=== PATIENT | female | born 1950 | race Caucasian/White ===

== ENCOUNTER 2019-05-16 11:48 | Outpatient (CLI) | payer MEDICARE, OTHER, SELFPAY ==
--- NOTE | 2019-05-16 12:02 | XR_ITS ---
WS: [id number] LEFT HIP HISTORY: TROCHANTERIC BURSITIS, UNSPECIFIED HIP COMPARISON: CT pelvis 08/12/2015 LEFT hip: No acute fracture or dislocation. Mild narrowing of the LEFT hip joint. No bone destruction . Several small calcifications with a maximum diameter 14 mm in the soft tissues lateral to the proxima l femur. These calcifications were present on the prior study and probably associated with the tendon s of the gluteal muscles. XR/XR hip LT 2-3V wo/w pel* [id number] IMPRESSION: 1. Mild LEFT hip joint arthritis. 2. Stable calcifications in the soft tissues lateral to the proximal femur. Th marcelina calcifications were present in 2016 and probably related to calcific tendin itis.
== END 2019-05-16 11:49 | disposition home or self-care (01) ==
LOC: RADWPI 11:56
PROVIDERS: Family Provider Family Medicine; PCP Family Medicine; Visit Provider Family Medicine
DX: M70.62 Trochanteric bursitis, left hip (principal); L94.2 Calcinosis cutis
CPT/HCPCS: 73502

== ENCOUNTER → 2019-12-20 14:45 | Outpatient (BNVA) | payer MEDICARE, OTHER, SELFPAY | PROVIDERS: Family Provider Family Medicine; PCP Family Medicine; Visit Provider Podiatrist Foot & Ankle Surgery | DX: M79.672 Pain in left foot (principal); M19.072 Primary osteoarthritis, left ankle and foot | CPT/HCPCS: 73630 ==

== ENCOUNTER → 2019-12-26 18:05 | Outpatient (BNVA) | payer MEDICARE, OTHER, SELFPAY | PROVIDERS: Family Provider Family Medicine; PCP Family Medicine; Visit Provider Nurse Practitioner Family | DX: Z20.828 Contact with and (suspected) exposure to other viral communicable diseases (principal) | CPT/HCPCS: 87635 ==

== ENCOUNTER → 2020-04-08 12:45 | Outpatient (BNVA) | payer MEDICARE, OTHER, SELFPAY | PROVIDERS: Family Provider Family Medicine; PCP Family Medicine; Visit Provider Podiatrist Foot & Ankle Surgery | DX: Z20.828 Contact with and (suspected) exposure to other viral communicable diseases (principal); Z01.812 Encounter for preprocedural laboratory examination | CPT/HCPCS: 87635 ==

== ENCOUNTER 2020-04-12 06:48 | Day surgery (SDC) | payer MEDICARE, OTHER, SELFPAY ==
[2020-04-11 13:53] VITALS: BMI 29.3
--- NOTE | 2020-04-12 | SCC_ITS ---
Procedure Done: Hammertoe Correction left 2nd toe [id number] 28 seconds of fluoroscopic guidance, for a cumulative dose of 0.302 mGy, was provided to Dr. Parrish by the radiology department. C-arm images of the LEFT foot were saved for the patient's permanent record. [facility]
--- NOTE | 2020-04-12 05:58 | P.HP_ITS ---
Providers/Chief Complaint Chief Complaint: degenerative arthirtis of toe joint History of Present Illness Kiana Brenner is a 69 year old female presenting for surgical consultation of her left second toe. She has had progressive pain that is arthritic in nature and affects her everyday activities standing and walking. Describes the nature of the pain is achy which increases to sharp stabbing with increased activity. She is failed conservative measures consisting of spacers padding, anti-inflammatories and supportive shoes. Would like to discuss surgical correction at this time. Review of Systems General: Reports: 10 or more systems reviewed and unremarkable except in HPI and below Const: Denies: fever(s) or chills Eyes: Denies: change in vision Card: Denies: chest pain or palpitations Resp: Denies: dyspnea or productive cough GI: Denies: abdominal pain, nausea or vomiting : Denies: flank pain Musc: Reports: extremity pain Skin/Breast: Denies: rash Neuro: Denies: numbness in extremities, sensory changes or frequent falls Psych: Denies: suicidal ideation Kartik/Lymph: Denies: easy bruising Medications/Allergies Home Medications Medication Instructions Recorded Confirmed Last Taken Type alprazolam 0.5 mg tablet 0.5 mg PO DAILY 10/26/19 04/12/20 04/11/20 History loratadine 10 mg tablet 10 mg PO DAILY 10/26/19 04/11/20 Unknown History metronidazole 0.75 % topical cream 1 applic TOPICAL DAILY 10/26/19 04/11/20 Unknown History omeprazole 20 mg tablet,delayed 20 mg PO DAILY 10/26/19 04/11/20 Unknown History release tramadol 50 mg tablet 50 mg PO BID PRN 10/26/19 04/11/20 Unknown History trazodone 100 mg tablet 100 mg PO DAILY 10/26/19 04/11/20 Unknown History methotrexate sodium 2.5 mg tablet 6 mg PO .weekly tab 12/26/19 04/11/20 03/29/20 History ustekinumab 45 mg/0.5 mL SUBCUT .s1cgwhwa ml 12/26/19 02/27/20 Unknown History subcutaneous solution amlodipine 5 mg PO DAILY 04/11/20 04/12/20 04/12/20 History Allergies Allergy/AdvReac Type Severity Reaction Status Date / Time cefuroxime [From Ceftin] Allergy Unknown Unknown Verified 02/27/20 14:10 PFSH PFSH: Medical History (Updated 04/12/20 @ 05:59 by Corona Parrish DPM) H/O psoriatic arthritis Hypertension Meniere disease Osteoarthritis Raynaud disease Surgical History History of hysterectomy History of right knee joint replacement Family History Other Cancer Diabetes Social History Smoking and tobacco status: never smoked Household members: spouse Marital status: Current occupational status: retired Vital Signs Weight: Weight last 48 hrs Weight 182 lb Physical Exam Narrative: EXAM NARRATIVE: Patient is alert and oriented ?3 and in no acute distress. The following is a focused bilateral lower extremity exam. VASCULAR: Dorsalis pedis and posterior tibial arteries palpable +2 bilaterally. Capillary refill time less than 5 seconds to the distal hallux bilaterally. Calf is supple and nontender proximally and distally. Varicosities to the lower extremities. NEUROLOGICAL: Protective sensation intact 10/10 sites, tested with [place] monofilament to bilateral feet. DERMATOLOGICAL: Lower extremity skin is well-hydrated, normal texture and turgor. There are no open sores or lesions noted to the lower extremities. No erythema or ecchymosis present to the bilateral legs and feet. MUSCULOSKELETAL: Hammertoe deformity to the right second toe with pain to palpation at the right second distal interphalangeal joint and with range of motion this is limited at this joint compared to the contralateral limb with dorsiflexion and plantarflexion. Ankle joint dorsiflexion is 5 degrees beyond neutral at the left, 10 degrees at the right. First metatarsal phalangeal joint dorsiflexion 30 degrees at the right, 15 degrees of the left. Muscle strength is 5 out of 5 in all 3 cardinal planes to the bilateral and ankle. Resp: COMMON NORMALS: normal respiratory effort, No retractions, No use of accessory muscles and clear to auscultation bilaterally EFFORT & INSPECTION: Yes able to speak in complete sentences and Yes symmetric chest movement AUSCULTATION: clear to auscultation bilaterally Cardio: COMMON NORMALS: regular rate, regular rhythm, S1 normal heart sound present, S2 normal heart sound present and Peripheral pulses 2+ throughout RATE: regular rate RHYTHM: regular rhythm HEART SOUNDS: S1 normal heart sound present and S2 normal heart sound present PERIPHERAL PULSES: Peripheral pulses 2+ throughout A&P Assessment and plan (1) Degenerative arthritis of toe joint: Status: Acute Qualifiers: Laterality: left Qualified Code(s): M19.072 - Primary osteoarthritis, left ankle and foot (2) Hammertoe of left foot: Status: Acute (3) Left foot pain: Status: Acute Additional A&P Information Patient's chief complaint is her left second toe pain. Reviewed x-ray shows degenerative changes with joint space narrowing, sclerosing and irregularity joint surface consistent with old fracture versus significant degenerative joint disease at this toe. Recommended Silipos sleeve and hammertoe cushion and supportive shoes and stretching exercises of the leg muscle group posteriorly. Bhdw-imq-[id number] NSAIDs and activity modifications. Patient has been performing these conservative measures without relief and would like to discuss surgical intervention. Recommending left second toe hammertoe correction with arthroplasty/arthrodesis at distal interphalangeal joint will be scheduled for April 12, 2019. Will hold methotrexate 1 week prior to surgery and restart 1 month following surgery. Discussed risks include pain, bleeding, numbness, infection, persistent swelling, hypersensitivity, surgical site dehiscence, hardware failure, delayed union, nonunion and malunion, pseudoarthrosis and need for further surgical intervention. Patient is agreeable wishes to proceed. Follow-up week 1 nursing visit dressing change, 2,4 and 6 in podiatry clinic postoperatively. Left second hammertoe correction with arthrodesis of distal interphalangeal joint with implant scheduled 04/12/2020 will be outpatient, MAC anesthesia duration of procedure 30 minutes. Coding Level of Care Code Acute Wire Machine Operator for Chg Fwd Exam Expanded Problem Focused Diagnoses Degenerative arthritis of toe joint M19.072 Laterality: left Hammertoe of left foot M20.42 Left foot pain M79.672
[2020-04-12 07:02] VITALS: BP 136/91; PULSE 95; RESP 18; O2SAT 96
[2020-04-12] MEDS: sodium chloride 0.9% 1,000 ML 30 ML IV (07:29)
--- NOTE | 2020-04-12 07:55 | ANES.PREANE2 ---
Pre-Anesthetic Assessment Pre-Anesthetic Assessment: Height/Weight: Height 1.68 m Weight 82.554 kg Pulse Resp BP Pulse Ox 95 18 136/91 96 04/12/20 07:02 04/12/20 07:02 04/12/20 07:02 04/12/20 07:02 Preop Diagnosis: Left second hammertoe Proposed Procedure: Operation Date: 04/12/20 08:30 Proposed Procedures p Hammertoe Correction left 2nd toe 86414 M19.072(Left) - Corona Parrish DPM Familial anesthetic complications: ponv Was Beta Marita taken within 24 hours: N/A Last intake: Intake Last Liquid Date 04/12/20 Last Liquid Time 06:00 Last Solid Date 04/11/20 Last Solid Time 22:00 Social: Social History: No alcohol and No tobacco Exam: Pre-Anes Outpt Exam: alert, oriented x 3, clear to auscultation bilaterally and regular rate & rhythm Airway: Cervical ROM: WNL MP: 2 Dentition: Full CV/HEM: CV/HEM: HTN GI: GI: GERD Musc/skel: Musc/skel: OA/DJD (psoriatic) Anesthetic Plan: ASA status: 2 Anesthesia: MAC Risk of > 500 ml blood loss (7ml/kg in children): No Meds/Allergies Current Medications: Current Medications Generic Name Dose Route Start Last Admin Trade Name Freq PRN Reason Stop Dose Admin Sodium Chloride 1,000 mls @ 30 ml s/hr 04/12/20 07:00 04/12/20 07:29 Sodium Chloride 0.9% IV 04/13/20 06:59 30 mls/hr .Q24H KENDALL Administration PFSH Anesthesia PFSH: Medical History (Updated 04/12/20 @ 05:59 by Corona Parrish DPM) H/O psoriatic arthritis Hypertension Meniere disease Osteoarthritis Raynaud disease Surgical History History of hysterectomy History of right knee joint replacement Family History Other Cancer Diabetes Social History Smoking and tobacco status: never smoked Household members: spouse Marital status: Current occupational status: retired Data Anesthesia Cardiac Studies: No Data to Display
--- NOTE | 2020-04-12 08:28 | W.PM.OPSUD ---
Surgery/Procedure H&P Update DATE OF PROCEDURE: April 12, 2020 DATE H&P PERFORMED: 04/12/20 H&P UPDATE INFORMATION: I have reviewed H&P completed within last 30 days, I have examined patient prior to procedure, No changes to prior documentation and H&P is in [facility] EMR on date indicated PREOP DIAGNOSIS: Left second hammertoe PLANNED PROCEDURE: Operation Date: 04/12/20 08:30 Proposed Procedures p Hammertoe Correction left 2nd toe 76476 M19.072(Left) - Corona Parrish DPM
--- NOTE | 2020-04-12 08:28 | PM.OP ---
Operative Report Date of procedure: April 12, 2020 Pre-op Diagnosis: Left second hammertoe Post-op diagnosis: same Post-op Findings: Degenerative joint disease at the left second toe distal interphalangeal joint. Procedure Done: Hammertoe Correction left 2nd toe [id number] Implants: 4-0 nylon. [place] 28 2.0 headless partially-threaded cannulated screw 20 mm in length Pathology: none sent Surgeon: Corona Parrish D.P.M. Assistant Store Manager Operations: Hitesh Anesthesia: MAC Estimated blood loss: Less than 10 mL Tourniquet time: No tourniquet utilized due to patient's medical condition of Raynaud's IV fluids: None Urine output: None Complications: None Findings: Arthrosis of the left second toe distal interphalangeal joint Condition: stable Disposition: PACU Brief History: Ms. Brenner is a pleasant 69-year-old female with persistent pain in her left second toe this has been progressive and at this point it throbs and radiates into her foot. She does have history of trauma to this toe, it is persistently swollen, positioned with contracture in the sagittal plane and decreased range of motion at the distal interphalangeal joint. On x-ray she has joint space narrowing, sclerosis and degenerative joint disease. She can no longer enjoy her daily activities due to the pain she has tried conservative measures of nzsk-fgz-nobbbhn anti-inflammatories, padding spacing and accommodative supportive shoes. She would like to discuss surgical intervention. Risks include pain, bleeding, numbness, infection, surgical site dehiscence, persistent swelling, hardware failure, hardware irritation, delayed union, malunion, complications of Raynaud's vasospasm could result in gangrenous changes ischemia and need for amputation. Patient is agreeable wishes to proceed. She was interviewed in the preoperative holding, all questions answered to her satisfaction. Informed consent reviewed and signed and initialed left foot preoperatively. Patient wishes to proceed. No guarantees written, expressed or implied. Procedure: Under mild sedation the patient was brought to the operating room and placed on the operating table in supine position. A timeout was performed. Anesthesia was administered by the anesthesia service. Local anesthesia injected by myself consisting of 10 cc of one-to-one mixture 1% lidocaine a 0.5% Marcaine plain and a left second ray block fashion. Well-padded pneumatic tourniquet was applied to the left ankle however this was never inflated or utilized throughout the duration of the procedure. Attention was directed to the dorsal aspect of the left toe distal interphalangeal joint where 2 semielliptical converging incisions were performed with a #15 blade in a transverse fashion and skin bridge excised and passed from operative field. Extensor tendon was cut from medial lateral exposing the distal interphalangeal joint of the left second toe this was arthritic, decreased range of motion and joint space loss. Remaining cartilage was denuded utilizing rondure at the head of the intermediate phalanx and base of the proximal phalanx. Next utilizing standard AO technique a [place] 28 partially-threaded, headless, 2.0 mm x 20 mm screw was inserted from distal to proximal with excellent bony apposition and compression noted and placement confirmed with intraoperative fluoroscopy. Incision site was flushed with copious amounts of sterile saline solution. Incisions were closed utilizing 4-0 nylon. Patient tolerated the procedure well and was transferred to the PACU with vital signs stable and vascular status intact. Following a period of postoperative monitoring she will be discharged home. She was given a postop shoe to be worn at all times she felt rest and elevate left foot. She was prescribed [place] to be taken judiciously as needed for pain.
[2020-04-12] MEDS: clindamycin 600 MG/50 ML PREMIX 100 MG IV (08:32)
[2020-04-12] MEDS: lidocaine 1% INJ 20 mL IM (08:45)
--- NOTE | 2020-04-12 09:35 | XR_ITS ---
WS: [id number] Left foot, 3 views, 04/12/2020 Clinical Data: post op Comparison: Left foot, 12/20/2019. Findings: There is a small orthopedic screw fusing the left second DIP joint of the foot. The remainder of the foot shows no change from before. The soft tissues are normal. XR/XR foot LT min 3V* [id number] Impression: Fusion of left second DIP joint of the foot.
[2020-04-12 09:43] VITALS: BP 105/65; PULSE 75; RESP 18; TEMP 36.6; O2SAT 92
[2020-04-12 10:08] VITALS: BP 106/79; PULSE 72; RESP 16; O2SAT 94
--- NOTE | 2020-04-12 14:40 | ANE.PACU2 ---
Inpatient post-anesthesia follow up: Airway intact: Yes Vital signs: Temperature 97.9 F Pulse Rate 72 Respiratory Rate 16 Blood Pressure 106/79 Pulse Oximetry 94 Oxygen Delivery Me thod Room Air Oxygen Flow Rate Fraction of Inspir ed Oxygen Hydration adequate: Yes Nausea and vomiting: No Pain level: 3 Mental status: Baseline
== END 2020-04-12 10:14 | disposition home or self-care (01) ==
PROVIDERS: Visit Provider Podiatrist Foot & Ankle Surgery
PROC: (CPT 28285; principal; 2020-04-12 08:10)
DX: M20.42 Other hammer toe(s) (acquired), left foot (principal); I10 Essential (primary) hypertension; K21.9 Gastro-esophageal reflux disease without esophagitis
CPT/HCPCS: 28285; 12345; 73630; 76000; C1713; J2250; J2405; J2704; J3010; J3490; J7030

== ENCOUNTER → 2020-04-24 13:31 | Outpatient (BNVA) | payer MEDICARE, OTHER, SELFPAY | PROVIDERS: Visit Provider Podiatrist Foot & Ankle Surgery | DX: Z47.89 Encounter for other orthopedic aftercare (principal); Z98.1 Arthrodesis status | CPT/HCPCS: 73630 ==

== ENCOUNTER → 2020-05-09 12:28 | Outpatient (BNVA) | payer MEDICARE, OTHER, SELFPAY | PROVIDERS: Visit Provider Podiatrist Foot & Ankle Surgery | DX: Z48.89 Encounter for other specified surgical aftercare (principal) | CPT/HCPCS: 73630 ==

== ENCOUNTER 2020-07-22 10:59 | Outpatient (CLI) | payer MEDICARE, OTHER, SELFPAY ==
--- NOTE | 2020-07-22 11:08 | XRR_ITS ---
PROCEDURE INFORMATION: Exam: XR Lumbosacral Spine Exam date and time: 07/22/2020 11:10 AM Age: 69 years old Clinical indication: Low back pain; Additional info: Low back pain since mar 2020 TECHNIQUE: Imaging protocol: XR of the lumbosacral spine. Views: 2 or 3 views. COMPARISON: CR XR hip LT 2-3V wo/w pel* [id number] 05/16/2019 12:10 PM FINDINGS: Bones/joints: There is a mild lumbar scoliosis. There is mild compression fracture of the superior endplate of L1. This has occurred since a CT scan from 08/12/2015. Exact age is uncertain but degenerative changes with sclerosis and osteophytes is suggests that it is not acute. There is no malalignment. Chronic degenerative changes are present in the lower lumbar spine with disc space narrowing and facet joint sclerosis and hypertrophy. Soft tissues: Unremarkable. XR/XR lumbar spine 2-3V* [id number] IMPRESSION: 1. There is mild compression fracture of the superior endplate of L1 which is probably not acute. 2. Chronic degenerative changes.
== END 2020-07-22 11:00 | disposition home or self-care (01) ==
PROVIDERS: Visit Provider Nurse Practitioner
DX: S32.019A Unspecified fracture of first lumbar vertebra, initial encounter for closed fracture (principal); X58.XXXA Exposure to other specified factors, initial encounter
CPT/HCPCS: 72100

== ENCOUNTER 2022-08-25 13:52 | Outpatient (CLI) | payer MEDICARE, OTHER, SELFPAY ==
--- NOTE | 2022-08-25 14:07 | XR_ITS ---
WS: [id number] Lumbar spine, 5 views including both obliques, 08/25/2022 Clinical Data: OTHER ACUTE POSTPROCEDURAL PAIN Comparison: Lumbar spine, 07/22/2020 Findings: No new compression fractures or subluxation is seen. There is loss of the anterior and superior heigh t of approximately 10-15% of L1 unchanged. There are anterior osteophytes at L1. There is degenerativ e disc narrowing at L4-L5 and L5-S1. The oblique images show no spondylolysis. There is osteoporosis of the lumbar spine. The transverse processes and SI joints are normal. The abdominal aorta shows calcification without aneurysm. XR/XR lumbar spine min 4V [id number] Impression: 1. Wedge compression fracture of the anterior superior aspect of L1 unchanged. 2. Osteophytes at L1 unchanged. 3. Degenerative disc narrowing at L4-L5 and L5-S1. 4. Osteoporosis. 5. No spondylolysis.
== END 2022-08-25 13:53 | disposition home or self-care (01) ==
PROVIDERS: PCP Nurse Practitioner Family; Visit Provider Nurse Practitioner Family
DX: G89.18 Other acute postprocedural pain (principal); S32.010A Wedge compression fracture of first lumbar vertebra, initial encounter for closed fracture; W19.XXXA Unspecified fall, initial encounter; M25.78 Osteophyte, vertebrae; M51.37 Other intervertebral disc degeneration, lumbosacral region; M81.0 Age-related osteoporosis without current pathological fracture
CPT/HCPCS: 72110

== ENCOUNTER → 2022-09-14 13:55 | Outpatient (BNVA) | payer MEDICARE, OTHER, SELFPAY | PROVIDERS: PCP Nurse Practitioner Family; Visit Provider Podiatrist Foot & Ankle Surgery | DX: M79.671 Pain in right foot (principal); M79.672 Pain in left foot; I73.9 Peripheral vascular disease, unspecified | CPT/HCPCS: 73630; 99204 ==

== ENCOUNTER → 2022-09-28 07:30 | Outpatient (BNVA) | payer MEDICARE, OTHER, SELFPAY | PROVIDERS: PCP Nurse Practitioner Family; Visit Provider Podiatrist Foot & Ankle Surgery | DX: I73.9 Peripheral vascular disease, unspecified (principal); G62.9 Polyneuropathy, unspecified | CPT/HCPCS: 11104 ==

== ENCOUNTER → 2023-01-06 11:21 | Outpatient (BNVA) | payer MEDICARE, OTHER, SELFPAY | PROVIDERS: PCP Nurse Practitioner Family; Visit Provider Podiatrist Foot & Ankle Surgery | DX: I73.9 Peripheral vascular disease, unspecified | CPT/HCPCS: 99213 ==

== ENCOUNTER 2023-06-07 10:56 | Outpatient (CLI) | payer MEDICARE, OTHER, SELFPAY ==
--- NOTE | 2023-06-07 11:04 | XRR_ITS ---
PROCEDURE INFORMATION: Exam: XR Lumbosacral Spine Exam date and time: 06/07/2023 11:16 AM Age: 72 years old Clinical indication: Injury or trauma; Fall; Blunt trauma (contusions or hematomas); Prior surgery; Surgery date: 6+ months; Surgery type: L spine; Additional info: Dorsalgia/sacrococcygeal disorders/fall TECHNIQUE: Imaging protocol: Radiologic exam of the lumbosacral spine. Views: 2 or 3 views. COMPARISON: CR XR lumbar spine min 4V [id number] 08/25/2022 2:18 PM FINDINGS: Bones/joints: There is mild multilevel lumbar disc narrowing, greatest at L5-S1. There is moderate multilevel facet spondylosis, greater at the lower lumbar levels. The right hip prosthesis is intact and well aligned. There is L3 through L5 bilateral laminectomy. There is a mild chronic L1 superior endplate compression fracture, stable since 08/25/2022. Soft tissues: Unremarkable. Intraperitoneal space: The visible portion of the pelvis is intact. Organs: Cholecystectomy clips noted. Vasculature: Vascular calcification is present. XR/XR lumbar spine 2-3V* [id number] IMPRESSION: 1. Moderate lower lumbar disc and facet degeneration with postsurgical changes L3 through L5. Findings are stable since 08/25/2022. 2. Stable mild L1 compression fracture since 08/25/2022.
== END 2023-06-07 10:57 | disposition home or self-care (01) ==
LOC: RAD 11:00
PROVIDERS: PCP Nurse Practitioner Family; Visit Provider Nurse Practitioner Family
DX: M48.56XA Collapsed vertebra, not elsewhere classified, lumbar region, initial encounter for fracture (principal); M47.896 Other spondylosis, lumbar region; M54.50 Low back pain, unspecified
CPT/HCPCS: 72100

== ENCOUNTER 2024-02-11 15:57 | Outpatient (CLI) | payer MEDICARE, OTHER, SELFPAY ==
--- NOTE | 2024-02-11 15:59 | XRR_ITS ---
PROCEDURE INFORMATION: Exam: XR Ribs Exam date and time: 02/11/2024 4:05 PM Age: 73 years old Clinical indication: Injury or trauma; Fall; Rib area, bilateral; Blunt trauma; Additional info: Previous fall with rib pain/sternal TECHNIQUE: Imaging protocol: Radiologic exam of the of the ribs. Views: 3 views. Bilateral ribs. COMPARISON: No relevant prior studies available. FINDINGS: Bones/joints: No acute displaced rib fractures. Lungs: Calcified granuloma right mid lung. The lungs are relatively clear otherwise. Soft tissues: Normal. XR/XR ribs 3V* [id number] IMPRESSION: No acute displaced rib fractures. Consider cross-sectional imaging if there is concern for underlying more subtle fracture.
== END 2024-02-11 15:58 | disposition home or self-care (01) ==
LOC: RAD 15:59
PROVIDERS: PCP Nurse Practitioner Family; Visit Provider Nurse Practitioner Family
DX: R07.89 Other chest pain (principal); J84.10 Pulmonary fibrosis, unspecified
CPT/HCPCS: 71110

== ENCOUNTER → 2024-05-08 10:29 | Outpatient (BNVA) | payer MEDICARE, OTHER, SELFPAY | PROVIDERS: PCP Nurse Practitioner Family; Visit Provider Internal Medicine Cardiovascular Disease | DX: R00.0 Tachycardia, unspecified (principal); I47.20 Ventricular tachycardia, unspecified; I49.1 Atrial premature depolarization; I49.3 Ventricular premature depolarization; I47.10 Supraventricular tachycardia, unspecified | CPT/HCPCS: 93229; 93246 ==